=== PATIENT | female | born 1990 | race Caucasian/White ===

== ENCOUNTER 2025-02-03 16:34 | Emergency (ER) | payer SELFPAY ==
[2025-02-03 16:39] VITALS: BP 135/108
--- NOTE | 2025-02-03 18:38 | ED.GENMED ---
History of Present Illness
General
Chief Complaint: Back Pain
Time Seen by Provider: 02/03/25 18:29
Nursing documentation reviewed up to this point in time: agreed with
History of Present Illness
History of Present Illness:
34-year-old female presents to the ER for evaluation of low back pain after lifting heavy boxes of sand at work today. Patient is G5, P4, currently 36 weeks . She does have a weight lifting restriction at work of 30 pounds, however was
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 Patient reports severe pain and spasm across her mid back. She denies any abdominal pain. She feels positive movements. She has no loss of fluid. No urinary discomforts. No
genital anesthesia. No weakness in her legs. She has been receiving routine care. She did not take any medications for her discomfort prior to arrival.
Review of Systems
Review of Systems
Allergies reviewed?: Yes
Phy Exam
Physical Exam
Physical Exam:
Patient is awake, alert, tearful but in no acute distress, mucous memories moist, conjunctiva pink, no pain on palpation of midline thoracic or lumbar spine, significant paraspinal muscle spasm noted lower thoracic and upper right paralumbar
musculature, no crepitus, no step-offs, no overlying skin change, gravid uterus present up to costal margins, no peripheral edema noted, 2+ DP pulses present and symmetric, GCS is 15.
Course
Orders/Labs/Results
Orders:
Orders
02/03/25 18:30
Heart Tones ONCE
02/03/25 18:37
Acetaminophen [Tylenol] 1,000 mg PO NOW STA
02/03/25 18:49
Lidocaine [Lidocaine 4% Patch] 1 patch .ROUTE .STK-MED ONE
02/03/25 18:59
Urinalysis Urgent
Date Specimen was Collected: 02/03/25
Time Specimen was Collected: 18:58
Urine Microscopic Urgent
Date Specimen was Collected: 02/03/25
Time Specimen was Collected: 18:58
02/04/25 08:00
Lidocaine [Lidocaine 4% Patch] 1 patch TOPICAL DAILY
Apply Lidocaine patch(s) to:: low back
Abnormal Lab Results
02/03/25
18:59
Ur Leukocyte Esterase 1+ A
(Negative)
Urine Bacteria Few A
(Negative)
Urine Albumin 1+ A
(Neg - Trace)
X-rays considered but not ordered given absence of midline tenderness along with advanced state
Vital Signs
Initial and Last Documented VS:
Initial Vital Signs
Temp Pulse Resp BP Pulse Ox
98.1 F 95 22 135/108 99
02/03/25 16:39 02/03/25 16:39 02/03/25 16:39 02/03/25 16:39 02/03/25 16:39
Last Documented Vital Signs
Temp Pulse Resp BP Pulse Ox
98.1 F 89 25 124/77 98
02/03/25 16:39 02/03/25 19:56 02/03/25 19:56 02/03/25 19:56 02/03/25 19:56
MDM/Problems Addressed
Differential Diagnosis Includes:
Differential diagnosis to consider but not limited to muscle spasm, strain, along with other etiologies considered
Chronic conditions affecting care:
*Pulse Oximetry
SaO2: 99
Oxygen Mode of Delivery: Room air
Patient hypoxic: no
*Critical Care Note
Total Time (30-74mins, 75-104mins- exclusive of procedures): Not Applicable
Update Note
Update Note:
I discussed with patient muscle spasm and strain as etiology of symptoms along with supportive safe treatment for her symptoms including Tylenol and topical lidocaine patches. Will provide while awaiting urinalysis and heart tones. Patient
given apple juice to drink. Will reassess.
Patient feeling much better after medication in the emergency department. I discussed with patient continued supportive care. She expressed understanding of full discharge instructions and had no questions prior to leaving the department.
ED Attending Note
-
Portions of this chart may have been created with voice recognition software.� Occasional wrong word or��sound alike� substitutions may have occurred due to the inherent limitations of voice recognition software.
Discharge Plan
Departure
Patient Disposition: Home (Routine Discharge)
Date of Disposition: 02/03/25
Time of Disposition: 19:37
Patient with high blood pressure during this ER visit?: No
Discharge Problem:
Back strain
Instructions: Low Back Pain (DC)
Prescriptions:
No Action
PNV no.95-ferrous fumarate-FA [] 1 EACH tablet
1 ea PO DAILY
Prilosec
20 mg PO DAILY
acetaminophen 325 mg Tablet
650 mg PO Q4HPRN PRN (Reason: mild pain) Qty: 10 0RF
ibuprofen 800 mg Tablet
800 mg PO Q8HPRN PRN (Reason: CRAMPS) Qty: 10 0RF
Referrals:
Abbie Moura CRNP [Family Provider]
Activity Restrictions/Additional Instructions:
Encourage fluids. Please use Tylenol and topical pain relieving lidocaine patches as available [id number] to help with your back discomfort. Use moist heat for 20 minutes at a time to help with back pain and spasm. Please limit heavy
lifting and speak with your employer about already established weight limitations for lifting. Return to the ER for any concerns
Interventions
Interventions:
*Risk Screen - Suicide Last Done: 02/03/25 16:41
*General Assessment Last Done: 02/03/25 16:41
*Neglect/Abuse Screening Last Done: 02/03/25 16:41
*ED COVID-19 Vaccine History Last Done: 02/03/25 16:41
*ED Influenza Vaccine History Last Done: 02/03/25 16:41
*Nursing Disposition Last Done: 02/03/25 20:15
ED-Musculoskeletal Assessment Last Done: 02/03/25 18:53
Discharge Date and Time
Discharge Date/Time: 02/03/25 20:16
Print Language: CANADI[place]
[2025-02-03] MEDS: TYLENOL 1000 MG PO (18:50)
[2025-02-03 18:53] VITALS: BMI 37.8
[2025-02-03] MEDS: LIDOCAINE 4% PATCH 1 PATCH TOPICAL (18:53)
[2025-02-03 19:25] LABS: Urine Character Slightly Cloudy (Clear)
[2025-02-03 19:55] LABS: Urine Red Blood Cell 0-2 /HPF (0-2); Urine Squamous Cell >30 /LPF (Few)
[2025-02-03 19:56] VITALS: BP 124/77
== END 2025-02-03 20:16 | disposition home or self-care (01) ==
LOC: EMR 16:34
PROVIDERS: EMERGENCY PHYSICIAN Emergency Medicine; FAMILY PHYSICIAN Nurse Practitioner Family; OTHER PHYSICIAN Obstetrics & Gynecology
DX: O9A.213 Injury, poisoning and certain other consequences of external causes complicating pregnancy, third trimester (principal); S39.012A Strain of muscle, fascia and tendon of lower back, initial encounter; X50.0XXA Overexertion from strenuous movement or load, initial encounter; Z3A.36 36 weeks gestation of pregnancy
CPT/HCPCS: 99283; 81003; 81015